=== PATIENT | female | born 1985 | race Caucasian/White ===

== ENCOUNTER → 2021-09-05 | Outpatient (REF) | LOC: M EMP 07:50 | PROVIDERS: ATTEND Family Medicine | DX: Z20.822 Contact with and (suspected) exposure to COVID-19 (principal) ==

== ENCOUNTER 2021-09-08 12:47 | Emergency (ER) | payer OTHER ==
[~2021-09-08] VITALS: Ht 165.1 cm; Wt 135.0 kg
[2021-09-08 13:42] LABS: BASO % 0.4 % (0.0-1.0); EOS # 0.3 10^3/uL (0.0-0.5); EOS % 3.8 % (0.0-3.0); HEMATOCRIT 44.5 % (36.0-47.0); HEMOGLOBIN 14.7 g/dl (12.0-15.5); LYMPH # 1.8 10^3/uL (1.5-5.0); LYMPH % 22.6 % (24.0-44.0); MEAN CORPUSCULAR HEMOGLOBIN 30.1 pg (27.0-33.0); MONO # 0.6 10^3/uL (0.0-0.8); MONO % 7.2 % (2.0-8.0); NEUTROPHILS # 5.3 10^3/uL (1.5-8.5); NEUTROPHILS % 65.7 % (36.0-66.0); PLATELET COUNT, AUTOMATED 217 10^3/uL (150-450); RED BLOOD COUNT 4.89 10^6/uL (4.00-5.40)
--- NOTE | 2021-09-08 14:03 | REP ---
INDICATION: trauma. COMPARISON: None. TECHNIQUE: Three views of the right shoulder were performed. FINDINGS: The acromioclavicular and glenohumeral relationships are within normal limits. There is no acute fracture or destructive osseous lesion. IMPRESSION: Within normal limits <Electronically signed by Conor Farr > 09/08/21 [id number]
--- NOTE | 2021-09-08 14:03 | REP ---
INDICATION: trauma. COMPARISON: None. TECHNIQUE: Four views FINDINGS: No acute fracture or destructive osseous lesion. IMPRESSION: No acute osseous abnormality <Electronically signed by Conor Farr > 09/08/21 [id number]
--- NOTE | 2021-09-08 14:03 | REP ---
INDICATION: trauma. TECHNIQUE: AP and frog-lateral views FINDINGS: The hip joint space is symmetric and well maintained. There is no fracture, dislocation, or subluxation. IMPRESSION: Within normal limits <Electronically signed by Conor Farr > 09/08/21 1400
[2021-09-08] MEDS ORDERED: ISOVUE-370 76% 100ML VIAL As Ordered ONE (14:49)
--- NOTE | 2021-09-08 15:14 | REP ---
INDICATION: trauma; RLQ. COMPARISON: None. TECHNIQUE: Standard helical technique after the intravenous administration of 100 cc Isovue 370 FINDINGS: The patient is status post cholecystectomy. The liver, spleen, pancreas, adrenal glands, and kidneys are within normal limits. The abdominal aorta and para-aortic regions are within normal limits. The bowel loops and the mesenteries are within normal limits. The appendix is not abnormally dilated and there is no abnormal Audelia appendiceal fatty infiltration or fluid in the mesoappendix. There is no free fluid or free air. There is no evidence of a mass or adenopathy. Bone window technique throughout the examination shows the osseous structures to be within normal limits. IMPRESSION: There is no evidence of acute disease. The very base of the appendix enhances minimally with contrast, however, there is no appendiceal dilatation, wall thickening, Audelia appendiceal fatty infiltration, or fluid in the mesoappendix. <Electronically signed by Conor Farr > 09/08/21 [id number]
--- NOTE | 2021-09-08 15:17 | REP ---
INDICATION: trauma; l-spine vert point tender. COMPARISON: None. TECHNIQUE: 4 x 4 mm helical scanning through the lumbar spine with sagittal and coronal reconstructions. FINDINGS: CT cannot effectively evaluate for acute discopathy. Vertebral body height and alignment is within normal limits. There is L4-5 disc space narrowing there is calcifications seen involving the posterior extent of the annulus at L3-4 and L4-5. This is likely causing anterior thecal sac compression at those 2 levels. There is no evidence of an acute fracture, dislocation, or subluxation. IMPRESSION: Findings and limitations as described above. Evidence of chronically calcified annulus at L3-4 and L4-5 as described above. <Electronically signed by Conor Farr > 09/08/21 [id number]
[2021-09-08] MEDS ORDERED: methocarbamoL 500 MG TAB PO ONE (15:40)
[2021-09-08] MEDS ORDERED: IBUPROFEN 600MG TAB PO ONE (15:40)
[2021-09-08] MEDS ORDERED: METH-1164 PO (15:41)
[2021-09-08 16:15] VITALS: BP 127/74
== END 2021-09-08 16:41 | disposition home or self-care (01) ==
LOC: M ED 12:47
DX: S39.012A Strain of muscle, fascia and tendon of lower back, initial encounter (principal); S60.211A Contusion of right wrist, initial encounter; S30.1XXA Contusion of abdominal wall, initial encounter; S70.01XA Contusion of right hip, initial encounter; V49.50XA Passenger injured in collision with unspecified motor vehicles in traffic accident, initial encounter; M48.061 Spinal stenosis, lumbar region without neurogenic claudication; M51.86 Other intervertebral disc disorders, lumbar region; F17.200 Nicotine dependence, unspecified, uncomplicated
CPT/HCPCS: 36415; 72131; 73030; 73110; 73502; 74177; 85025; 99284; Q9967

== ENCOUNTER → 2021-09-08 | Outpatient (REF) ==
[~2021-09-08] MED LIST: METH-1164 PO
== END ==
LOC: M LABSMTC 11:38
PROVIDERS: ATTEND Family Medicine
DX: Z20.822 Contact with and (suspected) exposure to COVID-19 (principal)